=== PATIENT | male | born 2000 | race Two or more races ===

== ENCOUNTER 2022-10-15 15:58 | Emergency (ER) | payer OTHER ==
[~2022-10-15] VITALS: Ht 167.6 cm; Wt 186.0 kg
[2022-10-15] MEDS ORDERED: NIFEDIPINE20 MG (16:36)
[2022-10-15] MEDS ORDERED: LOSARTAN-HCTZ1 EAC1 (16:37)
[2022-10-15] MEDS ORDERED: TENORMIN50 M1 (16:37)
[2022-10-15] MEDS ORDERED: METFORMIN HCL500 M3 (16:37)
== END 2022-10-15 18:41 | disposition home or self-care (01) ==
LOC: ER 15:58
DX: T70.0XXA Otitic barotrauma, initial encounter (principal); Y92.89 Other specified places as the place of occurrence of the external cause; E10.9 Type 1 diabetes mellitus without complications; Z79.84 Long term (current) use of oral hypoglycemic drugs; I10 Essential (primary) hypertension